=== PATIENT | female | born 1960 | race Caucasian/White ===

== ENCOUNTER 2016-08-17 11:24 | Inpatient (IN) ==
--- NOTE | 2016-08-16 22:21 | Discharge Summary ---
<Azra Harrell - Last Filed: 08/17/16 09:33> Date of Encounter: 08/17/16 - Discharge Diagnosis (1) Left rotator cuff tear arthropathy Priority: Primary Status: Acute (2) Anxiety Priority: Secondary Status: Chronic (3) HLD (hyperlipidemia) Priority: Secondary Status: Chronic Qualifiers: Hyperlipidemia type: unspecified Qualified Code(s): E78.5 - Hyperlipidemia , unspecified (4) HTN (hypertension) Priority: Secondary Status: Chronic Qualifiers: Hypertension type: essential hypertension Qualified Code(s): I10 - Essential (primary) hypertension (5) Hemochromatosis Priority: Secondary Status: Chronic Qualifiers: Hemochromatosis type: unspecified Qualified Code(s): E83.119 - Hemochromatosis, unspecified - Discharge Medications Home Medications: Aspirin Enteric Coated [Aspirin EC] 81 mg PO DAILY 08/21/15 [History] Cholecalciferol (D-3) [Vitamin D] 2,000 unit PO DAILY 08/21/15 [History] FLUoxetine HCl [Prozac] 40 mg PO DAILY 08/21/15 [History] Lisinopril [Zestril] 10 mg PO DAILY 08/21/15 [History] Acetaminophen [Tylenol] 650 mg PO Q6HR PRN 08/17/16 [History] Docusate [Colace] 100 mg PO DAILY 08/17/16 [History] Marshall-3 Acid Ethyl Esters [Lovaza] 1 gm PO DAILY 08/17/16 [History] OxyCODONE Immed Rel [Roxicodone 5 MG] 5 - 10 mg PO Q6HR PRN #40 tablet 08/17/16 [Rx] Allergies/Adverse Reactions: Allergies No Known Allergies Allergy (Verified 08/17/16 12:46) Primary care physician: Luciano Murphy - Patient Status Disposition: Home, Self-Care Condition: Good - Discharge Instructions Follow Up With: Luciano Murphy, [Primary Care Provider] - - Hospital Course Hospital course: Ms. Fox is a 55 year old female - Time Spent with Patient Total time spent providing and/or coordinating discharge services: <Krishna Jacobo - Last Filed: 08/18/16 06:24> Date of Encounter: 08/18/16 Time of Encounter: 06:23 - Discharge Diagnosis (1) Anxiety Priority: Secondary Status: Chronic (2) HLD (hyperlipidemia) Priority: Secondary Status: Chronic Qualifiers: Hyperlipidemia type: unspecified Qualified Code(s): E78.5 - Hyperlipidemia , unspecified (3) HTN (hypertension) Priority: Secondary Status: Chronic Qualifiers: Hypertension type: essential hypertension Qualified Code(s): I10 - Essential (primary) hypertension (4) Hemochromatosis Priority: Secondary Status: Chronic Qualifiers: Hemochromatosis type: unspecified Qualified Code(s): E83.119 - Hemochromatosis, unspecified (5) 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 Fox is a 55 year old female The patient had an uneventful postoperative course. They received antibiotics and physical therapy and were discharged in stable condition. There will follow -up in the office in 2 weeks. - Time Spent with Patient Total time spent providing and/or coordinating discharge services:
[2016-08-17] MEDS ORDERED: Ringers Solution, Lactated 1,000 ML IVC SCH ×2 (12:45→18:15)
[2016-08-17] MEDS ORDERED: CeFAZolin Pre 2,000 MG/100 ML 2,000 MG/100 ML BAG IVPB ONE (13:02)
--- NOTE | 2016-08-17 13:22 | Anesthesia Evaluation PreOp ---
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 Other Medical History: Hepatic (hemochromatosis) Anesthesia History: No Prior Anesthetic Complications, Past Anesthesia (hyst, btl, cholecyst) Alcohol Use: occasionally Drug use: none Medications and Allergies Aspirin Enteric Coated [Aspirin EC] 81 mg PO DAILY 08/21/15 [History] Cholecalciferol (D-3) [Vitamin D] 2,000 unit PO DAILY 08/21/15 [History] FLUoxetine HCl [Prozac] 40 mg PO DAILY 08/21/15 [History] Lisinopril [Zestril] 10 mg PO DAILY 08/21/15 [History] Acetaminophen [Tylenol] 650 mg PO Q6HR PRN 08/17/16 [History] Docusate [Colace] 100 mg PO DAILY 08/17/16 [History] Velarde-3 Acid Ethyl Esters [Lovaza] 1 gm PO DAILY 08/17/16 [History] OxyCODONE Immed Rel [Roxicodone 5 MG] 5 - 10 mg PO Q6HR PRN #40 tablet 08/17/16 [Rx] Allergies No Known Allergies Allergy (Verified 08/17/16 12:46) - Meds/Allergy Pre-op Review Medications Reviewed: Yes Allergies Reviewed: Yes Beta Blockers on Current Med List: No Anesthesia Results - Labs Laboratory Tests 08/10/16 08/10/16 08/10/16 10:33 10:33 10:33 Hgb 15.9 H Hct 45.6 H Plt Count 307 PT 11.1 INR 1.0 APTT 31.1 Sodium 139 Potassium 4.1 Creatinine 0.78 - Imaging EKG: report reviewed (sr) Anesthesia Exam O2 Sat Height 1.65 m Height 1.65 m Height 1.65 m Weight 89.358 kg Weight 89.358 kg Weight 89.358 kg O2 Sat by Pulse Oximetry 97 O2 Sat by Pulse Oximetry 97 Vital Signs Temp Pulse Resp BP Pulse Ox 98.9 F 90 18 102/69 97 08/17/16 12:40 08/17/16 12:40 08/17/16 12:40 08/17/16 12:40 08/17/16 12:40 Height: 1.65 Weight: 89 NPO (# of Hours): >8 - HEENT Pupil (Motor): Pupils equal, EOMI Mallampati: I Teeth: Normal Oral Opening: Greater than 3 - ROLLS MILL OPERATOR LOC: Oriented [employer]LL[employer] M[employer] OPERATOR Motor: Normal RUE, Normal LUE, Normal RLE, Normal LLE, Normal Face [employer] M[employer] OPERATOR Sensory: Normal: RUE, LUE, RLE, LLE, Face - Cardiac Rhythm: Regular Murmur: None - Pulmonary Breath Sounds: bilateral Clear Respiratory Effort: Symmetrical Anesthesia Assess/Plan ASA Score: 2 Modified Rubio Scale for Level of Consciousness: Cooperative, oriented, and tranquil Anesthetic Plan: General, Regional Monitoring Plan: Standard Monitors Recovery Plan: PACU
[2016-08-17] MEDS ORDERED: CloNIDine Patch 0.1 MG PATCH (WEEKLY) TD SCH (13:30)
[2016-08-17] MEDS ORDERED: *HR* Propofol 200 MG/20 ML VIAL IVP ONE (15:20)
[2016-08-17] MEDS ORDERED: *HR* FentaNYL (PF) 100 MCG/2 ML VIAL ONE (15:20)
[2016-08-17] MEDS ORDERED: *HR* Midazolam HCl 2 MG/2 ML VIAL ONE (15:20)
[2016-08-17] MEDS ORDERED: Ondansetron 4 MG/2 ML VIAL ONE (15:22)
[2016-08-17] MEDS ORDERED: Dexamethasone 4 MG/ML VIAL ONE (15:22)
--- NOTE | 2016-08-17 15:39 | History & Physical Report ---
Date of Encounter: 08/17/16 Time of Encounter: 15:39 24 Hour HP Update - Instructions Instructions: If the History and Physical is less than 30 days old and was completed prior to A.M. admission and or procedure and has NOT been updated on calendar day of procedure please complete this update prior to performing procedure. - Update Patient reports changes in Medical Condition: No Changes in examination, assessment, or condition: No Changes in Medication: No Preop tests/diagnostics Reviewed: Yes Surgery Remains Indicated: Yes Consent for Planned Operative Procedure(s) Verified: Yes - Pre-Operative Checklist Preoperative Checklist Indicated: No Prophylactic Antibiotic Ordered: Yes Is VTE Prophylaxis Indicated?: Yes
[2016-08-17] MEDS ORDERED: ROPIVACAINE HCL/PF 0.5% 30 ML VIAL ONE (15:55)
[2016-08-17] MEDS ORDERED: Bupivacaine-MPF 0.25% 10 ML VIAL ONE (15:55)
--- NOTE | 2016-08-17 16:13 | Anesthesia Procedures ---
Date of Encounter: 08/17/16 Time of Encounter: 16:12 Procedures: Anesthesia - Nerve Block Procedure Date: 08/17/16 Time: 16:12 Allergies/Adv Reactions: nka Surgical Procedure: left TSA Checklist: Correct Patient Identifier, Correct procedure, History checked Correct side: Left Blood Thinner: No Monitor Applied: EKG, BP, Pulse Oximetry Supplemental Oxygen via Nasal Cannula (L/min): 2 Sedation: Versed (mg): 2 Sedation: Fentanyl (mcg): 100 Indication: Post Op Analgesia Pre-op Neuro Deficits: No Block Type: Interscalene, Other (CP) Catheter placed: No Sterile Technique: Yes Ultrasound used: Yes Anatomy identified: Yes Visual spread of Local: Yes Neuro Stimulation: No Blood on Needle Aspiration: No Smooth Injection of Local: Yes Pain with Injection of Local: No Prep: Chlorhexadine Needle: 22 x 50 mm Stimuplex Local: Ropivacaine (0.5%), Other (decadron 10mg IS, 0.25% bupivacaine 10mL CP) Volume (cc): 40mL Number of Attempts: 1 Complications: None/effective block Vitals: Vital Signs/O2 Sat/Glucose, Most Recent RR 16, VSS Temp Pulse Resp BP Pulse Ox 98.9 F 87 18 113/83 97 08/17/16 12:50 08/17/16 15:50 08/17/16 12:50 08/17/16 15:50 08/17/16 15:50
[2016-08-17] MEDS ORDERED: Ondansetron 4 MG/2 ML VIAL IVP PRN ×2 (16:46→18:15)
--- NOTE | 2016-08-17 17:03 | Orthopedic Operative Note ---
Date of procedure: 08/17/16 Pre-op diagnosis: Left proximal humeral malunion Post-op diagnosis: same Procedure: Procedure: Left Total Shoulder Replacment Reverse, Estimated blood loss: 100 cc Hardware: Metal and polyethylene replacement: Arthrex large glenoid baseplate, 2 4.5 screws. 1 6.5 screw, 42+4 glenosphere, 6 humeral stem, poly insert 3 Exam Under anesthesia: Restricted motion all planes Procedural Notes: Proximal humeral malunion with grade 4 arthritic changes humeral head. Operative procedure: The patient was brought to the operating room and placed on the operating room table. After general anesthesia was administered the operative shoulder was examined. Findings were noted. The patient was placed in the modified beachchair position. All pressure points were padded appropriately. And the head was stabilized in the neutral position. The operative extremity was prepped and draped in the sterile surgical fashion. The patient received IV antibiotics prior to skin incision. A standard deltopectoral approach was made to the operative shoulder. Incision was made to the skin and subcutaneous tissue,hemo stasis was obtained with Bovie cautery. Using careful blunt dissection the cephalic vein was identified and mobilized medially. The deltopectoral interval was developed and the clavipectoral fascia was incised. The subscap was released off the lesser tuberosity and tagged with #2 FiberWire suture it was irreparable. The humerus was dislocated patient noted to have significant malunion and grade 4 arthritic changes humeral head. Humeral cut was made in 20 degrees of retroversion. Anterior and posterior Bankart retractors were placed to expose the glenoid. The glenoid guide was seated and the centering hole was made. It was reamed with the appropriate reamer. The large baseplate was seated and secured with ( 2) 4.5 screws and one 6.5 screw. The baseplate was irrigated and dried and the 42+4 Glenosphere was seated and secured with the Bell taper. The Bell taper was tested and found to be secure the humerus was redislocated and prepared with the diaphyseal reamers, followed by a broaching process up to the appropriate size 6 in the patient's anatomic version. The metaphyseal reamer was then utilized. Trial reduction found the shoulder to be relocatable. Trial components were removed The appropriate 6 stem was impacted in place in the patient's anatomic version. Trial reduction found the shoulder to be relocatable and stable with the appropriate 3 Trial component was removed and the real implant was seated and secured the shoulder was reduced. The shoulder had excellent motion and excellent stability and no evidence of dislocation. The deep tissue was irrigated with pulse irrigation. The deltopectoral interval was closed with a running #1 PDS suture, subcutaneous tissue was irrigated and closed with 0 PDS suture, the skin was closed with Dermabond. The patient was placed in a sterile dressing, abduction brace and extubated. The patient was then transferred to the recovery room in stable condition. Anesthesia: STEPH Surgeon: Krishna Jacobo Skip Miner Blasting: Azra Harrell Condition: stable Disposition: PACU
[2016-08-17] MEDS: *HR* HYDROmorphone (PF) 1 MG/ML SYRINGE IVP PRN ×3 (17:22→17:55)
[2016-08-17 17:36] LABS: Hematocrit 25.4 % (35.3-44.9); Hemoglobin 8.4 g/dL (11.5-15.4)
[2016-08-17] MEDS ORDERED: Bupivacaine/Clonidine Syringe 1 EACH SYRINGE ONE (17:46)
[2016-08-17] MEDS ORDERED: *HR* Enoxaparin 30 MG/0.3 ML SYRINGE SQ SCH (18:00)
--- NOTE | 2016-08-17 18:08 | Anesthesia Evaluation Post Op ---
Date of Encounter: 08/17/16 Time of Encounter: 18:07 - Vital Signs Vital Signs: Vital Signs/O2 Sat/Glucose, Most Current Temp Pulse Resp BP Pulse Ox 08/17/16 17:55 81 16 124/83 95 08/17/16 17:45 97.4 F L 87 16 115/75 95 08/17/16 17:35 80 16 119/92 95 08/17/16 17:25 80 16 127/85 94 08/17/16 17:15 97.1 F L 88 16 141/85 96 08/17/16 15:50 87 113/83 97 - Lungs Lungs: Clear Ascult./Percussion - Airway Airway: Non-obstructed - Cardiovascular Regular Rate - Mental Status Mental Status: Alert & Oriented, Answers Appropriately - Pain Pain Scale: 0 - Nausea Vomiting Nausea Vomiting: Not Present - Hydration Hydration: Tolerates oral liquids - Discharge PostOp Status: Discharge Patient to home
[2016-08-17] MEDS ORDERED: *HR* HYDROmorphone (PF) 1 MG/ML SYRINGE IVP PRN (18:15)
[2016-08-17] MEDS ORDERED: Sennosides 8.6 MG TABLET PO PRN (18:15)
[2016-08-17] MEDS ORDERED: Naloxone 0.4 MG/ML INJ IVP PRN (18:15)
[2016-08-17] MEDS ORDERED: MOM Conc 10 ML UD.LIQ PO PRN (18:15)
[2016-08-17] MEDS ORDERED: *HR* OxyCODONE Immed Rel 5 MG TABLET PO PRN (18:15)
[2016-08-17] MEDS ORDERED: Temazepam 15 MG CAPSULE PO PRN (18:15)
[2016-08-17] MEDS ORDERED: ceFAZolin 2,000 MG in D5% in Water 100 ML IVPB SCH (18:15)
[2016-08-17] MEDS: *HR* OxyCODONE Immed Rel 5 MG TABLET PO PRN ×2 (19:40→23:58)
[2016-08-17] MEDS: ceFAZolin 2,000 MG in D5% in Water 100 ML IVPB SCH (23:55)
[2016-08-18 03:29] LABS: Hematocrit 42.1 % (35.3-44.9); Hemoglobin 14.2 g/dL (11.5-15.4)
[2016-08-18] MEDS: *HR* OxyCODONE Immed Rel 5 MG TABLET PO PRN ×2 (05:29→10:35)
[2016-08-18] MEDS ORDERED: *HR* Enoxaparin 30 MG/0.3 ML SYRINGE SQ SCH (06:00)
--- NOTE | 2016-08-18 06:24 | Orthopedics Progress Note ---
Date of Encounter: 08/18/16 Time of Encounter: 06:24 - Assessment and Plan (1) Anxiety Current Visit: Yes Status: Chronic (2) HLD (hyperlipidemia) Current Visit: Yes Status: Chronic Qualifiers: Hyperlipidemia type: unspecified Qualified Code(s): E78.5 - Hyperlipidemia , unspecified (3) HTN (hypertension) Current Visit: Yes Status: Chronic Qualifiers: Hypertension type: essential hypertension Qualified Code(s): I10 - Essential (primary) hypertension (4) Hemochromatosis Current Visit: Yes Status: Chronic Qualifiers: Hemochromatosis type: unspecified Qualified Code(s): E83.119 - Hemochromatosis, unspecified (5) Fracture of proximal end of left humerus with malunion Current Visit: Yes Status: Acute Qualifiers: Encounter type: subsequent encounter Fracture type: closed Fracture morphology: unspecified fracture morphology Qualified Code(s): S42.202P - Unspecified fracture of upper end of left humerus, subsequent encounter for fracture with malunion Subjective Interval history: Patient was seen this morning doing well without complaints. Afebrile vital signs stable. Operative extremity: Neurovascularly intact Dressing clean dry and intact Calves nontender Assessment and plan: Continue with postoperative care Hematocrit 42 discharged today Objective Vital signs: Vital Signs Temp Pulse Resp BP Pulse Ox 08/18/16 04:30 97.8 F 94 15 116/87 94 08/18/16 00:06 97.7 F 98 15 104/68 95 08/17/16 21:30 98 F 95 17 124/76 95 08/17/16 20:30 98 F 94 16 120/74 96 08/17/16 19:54 97.9 F 96 15 114/78 95 08/17/16 18:54 98.5 F 93 14 140/84 94 08/17/16 18:15 97.6 F 84 14 133/93 95 08/17/16 18:05 87 14 131/85 95 08/17/16 17:55 81 16 124/83 95 08/17/16 17:45 97.4 F L 87 16 115/75 95 08/17/16 17:35 80 16 119/92 95 08/17/16 17:25 80 16 127/85 94 08/17/16 17:15 97.1 F L 88 16 141/85 96 08/17/16 15:50 87 113/83 97 08/17/16 12:50 98.9 F 90 18 102/69 97 08/17/16 12:40 98.9 F 90 18 102/69 97 Intake and Output 08/17/16 08/17/16 08/18/16 15:59 23:59 07:59 Intake Total 100 / 100 200 / 200 Output Total 100 / 100 Balance 0 / 0 200 / 200 Intake: IV Fluids 100 / 100 Ancef Premix 2,000 MG/100 100 / 100 ML 2,000 mg In 100 ml @ 200 mls/hr IVPB PREOP ONE Rx#:[id number] Oral 200 / 200 Output: Urine 0 / 0 Estimated Blood Loss 100 / 100 Other: # Voids 1 Weight 89.358 kg - Labs CBC & BMP: 08/18/16 03:10 - VTE Documentation of Mechanical Device: Venous foot pump, device Consult Discharge Plan - Plan Referrals: Luciano Murphy DO [Primary Care Provider] -
[2016-08-18] MEDS: ceFAZolin 2,000 MG in D5% in Water 100 ML IVPB SCH (07:52)
[2016-08-18] MEDS ORDERED: (Omega-3 Acid Ethyl Esters [Lovaza] 1 GM) PO SCH (09:00)
[2016-08-18] MEDS ORDERED: FLUoxetine 20 MG CAPSULE PO SCH (09:00)
[2016-08-18] MEDS ORDERED: Cholecalciferol (D-3) 1,000 UNIT TABLET PO SCH (09:00)
[2016-08-18] MEDS ORDERED: Aspirin Enteric Coated 81 MG Tablet PO SCH (09:00)
[2016-08-18 11:34] VITALS: BP 107/72
== END 2016-08-18 12:24 | disposition home or self-care (01) | DRG 483 ==
LOC: SAMDAY 11:24 → 3NENU 18:16
PROVIDERS: ADMIT Orthopaedic Surgery; ATTEND Orthopaedic Surgery